=== PATIENT | female | born 1945 | race African-American/Black ===

== ENCOUNTER 2016-07-28 07:12 | Day surgery (SDC) | payer OTHER ==
--- NOTE | ~2016-07-28 | EGD ---
EGD REPORT [facility] [address] [address] NAME: RENITA SERNA : [birth year] STATUS : REG [facility]#: [id number] AGE: 71 ADM/REG DATE : 07/28/16 MR#: [id number] REPORT SERV DATE: 07/28/16 DICTATED BY: DATE: REPORT STATUS : Draft TRANSCRIBED BY: [employer] DATE: 07/28/16 [facility] Patient Name: Renita Serna Date of : 1945 Attending MD: ERIN REZA MD Procedure Date No Time: 07/28/2016 Procedure: Colonoscopy Indications: Screening for colorectal malignant neoplasm Referring MD: CHRISTOPHER LOPEZ Medicines: Monitored Anesthesia Care Complications: No immediate complications. Procedure: Pre-Anesthesia Assessment: - ASA Grade Assessment: III - A patient with severe systemic disease. After I obtained informed consent, the scope was passed under direct vision. Throughout the procedure, the patient's blood pressure, pulse, and oxygen saturations were monitored continuously. The PCF [id number] was introduced through the anus and advanced to the cecum, identified by appendiceal orifice and ileocecal valve. The colonoscopy was performed without difficulty. The patient tolerated the procedure well. The quality of the bowel preparation was excellent. Findings: The perianal and digital rectal examinations were normal. A single small-mouthed diverticulum was found at the hepatic flexure. No other significant abnormalities were identified in a careful examination of the remainder of the colon. There is no endoscopic evidence of mass, polyps, ulcerations or angioectasia in the entire colon. Internal hemorrhoids were found during retroflexion and were Grade I (internal hemorrhoids that do not prolapse). No additional abnormalities were found on retroflexion. Impression: - Diverticulosis at the hepatic flexure. - Internal hemorrhoids. Recommendation: - Patient has a contact number available for emergencies. The signs and symptoms of potential delayed complications were discussed with the patient. Return to normal activities tomorrow. Written discharge instructions were provided to the patient. - Regular diet. - Discharge patient to home. EGD REPORT [facility] [address] [place]. [address] NAME: RENITA SERNA : [birth year] STATUS : REG [facility] PAT#: [id number] AGE: 71 ADM/REG DATE : 07/28/16 MR#: [id number] REPORT SERV DATE: 07/28/16 DICTATED BY: DATE: REPORT STATUS : Draft TRANSCRIBED BY: [employer] DATE: 07/28/16 - Continue present medications. - Repeat colonoscopy in 10 years for screening purposes. Procedure Code(s): --- Professional --- G0121, Colorectal cancer screening; colonoscopy on individual not meeting criteria for high risk Diagnosis Code(s): --- Professional --- K64.0, First degree hemorrhoids K57.30, Diverticulosis of large intestine without perforation or abscess without bleeding Z12.11, Encounter for screening for malignant neoplasm of colon CPT copyright 2013 [employer]. All rights reserved. The codes documented in this report are preliminary and upon supply chain assistant review may be revised to meet current compliance requirements. ERIN REZA MD 07/28/2016 9:38 AM This report has been signed electronically. Number of Addenda: 0 Note Initiated On: 07/28/2016 9:06 AM Scope Withdrawal Time 0 hours 7 minutes 46 seconds [address] [place] [address]
--- NOTE | ~2016-07-28 | EGD ---
EGD REPORT [facility] [address] [address] NAME: RENITA SERNA : [birth year] STATUS : REG [facility]#: [id number] AGE: 71 ADM/REG DATE : 07/28/16 MR#: [id number] REPORT SERV DATE: 07/28/16 DICTATED BY: DATE: REPORT STATUS : Draft TRANSCRIBED BY: [employer] DATE: 07/28/16 [facility] Patient Name: Renita Serna Date of : 1945 Attending MD: ERIN REZA MD Procedure Date No Time: 07/28/2016 Procedure: Upper GI endoscopy Indications: Dyspepsia Referring MD: CHRISTOPHER LOPEZ Medicines: Monitored Anesthesia Care Complications: No immediate complications. Procedure: Pre-Anesthesia Assessment: - ASA Grade Assessment: III - A patient with severe systemic disease. After obtaining informed consent, the endoscope was passed under direct vision. Throughout the procedure, the patient's blood pressure, pulse, and oxygen saturations were monitored continuously. The GIF H190 [id number] was introduced through the mouth, and advanced to the third part of duodenum. The upper GI endoscopy was accomplished without difficulty. The patient tolerated the procedure well. Findings: The examined esophagus was normal. The Z-line was regular and was found 37 cm from the incisors. There is no endoscopic evidence of Dumont's esophagus, areas of erosion, hiatus hernia, ulcerations or varices in the entire esophagus. Diffuse mildly erythematous mucosa without bleeding was found in the gastric antrum. No other significant abnormalities were identified in a careful examination of the stomach. There is no endoscopic evidence of ulceration, varices, stenosis or mass in the entire examined stomach. Biopsies were taken with a cold forceps for histology. The examined duodenum was normal. Biopsies were taken with a cold forceps for histology. There is no endoscopic evidence of mucosal abnormalities or ulceration in the entire examined duodenum. The cardia and gastric fundus were normal on retroflexion. Impression: - Normal esophagus. - Z-line regular, 37 cm from the incisors. - Erythematous mucosa in the antrum. - Normal examined duodenum. Biopsied. EGD REPORT [address] [address] NAME: RENITA SERNA : [birth year] STATUS : REG [facility]#: [id number] AGE: 71 ADM/REG DATE : 07/28/16 MR#: [id number] REPORT SERV DATE: 07/28/16 DICTATED BY: DATE: REPORT STATUS : Draft TRANSCRIBED BY: [employer] DATE: 07/28/16 Recommendation: - Patient has a contact number available for emergencies. The signs and symptoms of potential delayed complications were discussed with the patient. Return to normal activities tomorrow. Written discharge instructions were provided to the patient. - Regular diet. - Discharge patient to home. - Continue present medications. - Await pathology results. Procedure Code(s): --- Professional --- 12637, Esophagogastroduodenoscopy, flexible, transoral; with biopsy, single or multiple Diagnosis Code(s): --- Professional --- K31.9, Disease of stomach and duodenum, unspecified K30, Functional dyspepsia CPT copyright 2013 [employer]. All rights reserved. The codes documented in this report are preliminary and upon computer language coder review may be revised to meet current compliance requirements. ERIN REZA MD 07/28/2016 9:26 AM This report has been signed electronically. Number of Addenda: 0 Note Initiated On: 07/28/2016 8:06 AM Scope Withdrawal Time 0 hours 0 minutes 0 seconds [address] [id number]
[~2016-07-28 07:12] MED LIST: ACCU20 PO; ACIPHEX PO; ASAB PO; BENTYL10 PO; BYSTOLIC10 MG PO; DIOVAN HCT320 MG/25 PO; GAVISCON6 PO; GLUCPH PO; KLOR-CON 1010 MEQ PO; KLOR-CON M2020 MEQ PO; LIPITOR40 PO; LIVALO4 MG PO; NEUR100 PO; NORV25 PO; NORV5 PO; PREV30 PO; PRILOSEC40 MG PO; SINGULAIR1 PO; XARELTO20 MG PO; ZANTAC150 MG PO; ZOCOR40 PO
== END 2016-07-28 23:59 | disposition home or self-care (01) ==
LOC: DMU 07:12
PROVIDERS: Internal Medicine Gastroenterology
PROC: 0DB68ZX Excision of Stomach, Via Natural or Artificial Opening Endoscopic, Diagnostic (ICD-10-PCS; 2016-07-28)
PROC: 0DJD8ZZ Inspection of Lower Intestinal Tract, Via Natural or Artificial Opening Endoscopic (ICD-10-PCS; principal; 2016-07-28 09:30)
PROC: 0DB98ZX Excision of Duodenum, Via Natural or Artificial Opening Endoscopic, Diagnostic (ICD-10-PCS; 2016-07-28 09:30)
DX: Z12.11 Encounter for screening for malignant neoplasm of colon (principal); K64.0 First degree hemorrhoids; K57.30 Diverticulosis of large intestine without perforation or abscess without bleeding; E78.00 Pure hypercholesterolemia, unspecified; E11.9 Type 2 diabetes mellitus without complications; K31.89 Other diseases of stomach and duodenum; M19.90 Unspecified osteoarthritis, unspecified site; K21.9 Gastro-esophageal reflux disease without esophagitis; K44.9 Diaphragmatic hernia without obstruction or gangrene; I10 Essential (primary) hypertension; Z95.0 Presence of cardiac pacemaker; Z86.73 Personal history of transient ischemic attack (TIA), and cerebral infarction without residual deficits; Z79.899 Other long term (current) drug therapy; Z90.49 Acquired absence of other specified parts of digestive tract; Z98.890 Other specified postprocedural states
CPT/HCPCS: 43239; G0121; 82962; 88305